=== PATIENT | female | born 2005 | race Two or more races ===

== ENCOUNTER 2025-01-23 17:47 | Emergency (ER) | payer BC, SELFPAY ==
--- NOTE | ~2025-01-23 | US_ITS ---
CLINICAL HISTORY: +HCG, cramping, spotting Ultrasound OB first trimester Comparison: None available Findings: Single live intrauterine . CRL: 0.5 cm. EGA: 6 weeks and 3 days. MARLENE: 09/15/25. Previously established gestational age: N/A. Normal yolk sac. FHR: 127 bpm. No subchorionic bleed. Normal uterus and ovaries. Right corpus luteum. Trace pelvic free fluid, likely physiologic. Impression: Single live intrauterine estimated at 6 weeks and 3 days gestational age by today's ultrasound criteria. This document has been electronically signed by: Ashanti Morse MD on 01/23/2025 20:27:48
[2025-01-23 17:57] VITALS: BP 135/97; PULSE 79; RESP 16; TEMP 36.3; O2SAT 99; BMI 34.1
--- NOTE | 2025-01-23 17:59 | ED.PREGNANCY ---
HPI - General Chief complaint: Vaginal Bleeding Stated complaint: vaginal bleeding Time Seen by Provider: 01/23/25 20:10 Related Data Allergies Allergy/AdvReac Type Severity Reaction Status Date / Time No Known Allergies Allergy Verified 01/23/25 17:59 [facility], [facility] Social History Social History Advance Directives: No Advance Directives Information Provided: No Physical Exam Vital Signs: Vital Signs: Last Vital Signs Temp 97.3 F 01/23/25 17:57 Pulse 79 01/23/25 17:57 Resp 16 01/23/25 17:57 BP 135/97 H 01/23/25 17:57 Pulse Ox 99 01/23/25 17:57 O2 Del Method Room Air 01/23/25 17:57 BMI result Body Mass Index 34.1 Course Course Course Narrative: This is an RME: Additional HPI, ROS, PE not included below will be deferred to primary provider. RME assessment and note performed by: Lata Higuera PA-C This is a [id number] who presents to the ER with a complaint of vaginal spotting which started last week. Reporting some lower abdominal cramping. Also reporting nausea and vomiting. This is her first . LMP December 06. Plan: Labs, UA, US further ER eval needed Reevaluation(s) Reevaluation #1: I went to assess the patient, she had left her exam room without completing treatment Medical Decision Making Medical Decision Making MDM Narrative: Labs: No leukocytosis, not anemic, no electrolyte abnormality, quant [id number] Transvaginal ultrasound:Normal yolk sac. FHR: 127 bpm. No subchorionic bleed. Normal uterus and ovaries. Right corpus luteum. Trace pelvic free fluid, likely physiologic. Impression: Single live intrauterine estimated at 6 weeks and 3 days gestational age by today's ultrasound criteria. Lab Data 01/23/25 18:15 01/23/25 18:15 Labs: Lab Results 01/23/25 Range/Units 18:15 WBC 9.1 (4.8-10.8) X10*3/uL RBC 4.11 L (4.20-5.50) X10*6/uL Hgb 11.5 L (12.0-16.0) g/dl Hct 33.7 L (37.0-47.0) % MCV 82.0 (80.0-98.0) fL MCH 28.0 (27.0-33.0) pg MCHC 34.1 (31.0-35.0) g/dl RDW 14.5 (11.0-16.0) % Plt Count 235 (160-400) X10*3/uL MPV 10.5 (9.4-12.3) fL Immature Gran % (Auto) 0.3 (0.0-0.4) % Neut % (Auto) 61.3 (45-73) % Lymph % (Auto) 29.8 (20-40) % [place] % (Auto) 7.7 (2-11) % Eos % (Auto) 0.3 (0-4) % Baso % (Auto) 0.6 (0-2) % Lymph # (Auto) 2.7 (1.2-4.9) X10*3/uL [place] # (Auto) 0.7 (0.1-1.2) X10*3/uL Eos # (Auto) 0.0 (0.0-0.4) X10*3/uL Baso # (Auto) 0.1 (0.0-0.2) X10*3/uL Abs Immat Gran (auto) 0.03 (0.00-0.03) X10*3/uL Absolute Neuts (auto) 5.6 (2.0-8.3) x10*3/uL Absolute Nucleated RBC 0.000 (0.0-0.012) X10*3/uL Nucleated RBC % (auto) 0.0 (0.0-0.2) /100WBC Sodium 138 (135-145) mmol/L Potassium 3.7 (3.3-5.1) mmol/L Chloride 107 (96-108) mmol/L Carbon Dioxide 23 (22-29) mmol/L Anion Gap 12 (12-20) BUN 6 L (9-16) mg/dL Creatinine 0.58 (0.5-1.4) mg/dL Estim Creat Clear Calc 154.7 Estimated GFR > 60 Random Glucose 90 (60-115) mg/dL Calcium 9.2 (8.4-10.2) mg/dL Total Bilirubin 1.0 (0.0-1.0) mg/dL Direct Bilirubin 0.4 (0.0-0.5) mg/dL AST 23 (5-31) U/L ALT 30 (0-31) U/L Alkaline Phosphatase 66 (39-117) U/L Total Protein 7.4 (6.5-8.0) g/dL Albumin 4.8 (3.5-5.0) g/dL Beta HCG, Quant 25045 mIU/mL Discharge Plan Discharge Clinical Impression: Vaginal bleeding Patient Disposition: Left W/O Completing Treatment
[2025-01-23 18:20] LABS: MANUAL DIFF FLAG NO
[2025-01-23 18:22] LABS: Hematocrit 33.7 % (37.0-47.0); Hemoglobin 11.5 g/dl (12.0-16.0); Imm Gran Abs Auto 0.03 X10*3/uL (0.00-0.03); Imm Gran Pct Auto 0.3 % (0.0-0.4); Lymphocytes Absolute Auto 2.7 X10*3/uL (1.2-4.9); Mean Corpuscular HGB Conc 34.1 g/dl (31.0-35.0); Mean Corpuscular Hemoglobin 28.0 pg (27.0-33.0); Mean Corpuscular Volume 82.0 fL (80.0-98.0); NRBC Abs Auto 0.000 X10*3/uL (0.0-0.012); NRBC Pct Auto 0.0 /100WBC (0.0-0.2); Platelet Count 235 X10*3/uL (160-400); Red Blood Count 4.11 X10*6/uL (4.20-5.50); White Blood Count 9.1 X10*3/uL (4.8-10.8)
[2025-01-23 18:44] LABS: Alanine Aminotransferase 30 U/L (0-31); Albumin Level 4.8 g/dL (3.5-5.0); Alkaline Phosphatase 66 U/L (39-117); Anion Gap 12 (12-20); Aspartate Amino Transferase 23 U/L (5-31); Blood Urea Nitrogen 6 mg/dL (9-16); Calcium 9.2 mg/dL (8.4-10.2); Carbon Dioxide 23 mmol/L (22-29); Chloride 107 mmol/L (96-108); Creatinine Clr Calc Pharmacy 154.7; Estimated Glomerular Filt Rate > 60; Potassium 3.7 mmol/L (3.3-5.1); Sodium 138 mmol/L (135-145); Total Protein 7.4 g/dL (6.5-8.0)
--- NOTE | 2025-01-23 21:39 | PC.NURSE ---
Pt not in room or testing at time of contact. T/W called Pt cell phone, Pt states I left because I had to get to the store before it closed, I wont be going back if it's going to take more then 1 hour . Pt LWCT.
== END 2025-01-23 21:52 | disposition left against medical advice (07) ==
PROVIDERS: Physician Assistant Medical; Emergency Provider Emergency Medicine Emergency Medical Services; PCP Physician Assistant Medical
DX: O20.9 Hemorrhage in early pregnancy, unspecified (principal); Z3A.01 Less than 8 weeks gestation of pregnancy; O26.891 Other specified pregnancy related conditions, first trimester; R10.2 Pelvic and perineal pain; Z53.21 Procedure and treatment not carried out due to patient leaving prior to being seen by health care provider
CPT/HCPCS: 36415; 76801; 80048; 80076; 84702; 85025; 99281; 99284

== ENCOUNTER → 2025-01-23 18:02 | Outpatient (BNV) | payer BC, SELFPAY | PROVIDERS: Emergency Provider Emergency Medicine Emergency Medical Services; PCP Physician Assistant Medical; Visit Provider Radiology Diagnostic Radiology | DX: O26.851 Spotting complicating pregnancy, first trimester (principal); Z3A.14 14 weeks gestation of pregnancy | CPT/HCPCS: 76801 ==

== ENCOUNTER 2025-03-05 17:08 | Emergency (ER) | payer BC, SELFPAY ==
--- NOTE | ~2025-03-05 | US_ITS ---
CLINICAL HISTORY: pelvic pain --- Additional Notes or Special Instructions: 12 weeks US OB 1st trimester transabdominal Comparison: None provided Findings: Single intrauterine is favored by imaging with partial obscuration of the borders and margins of the apparent gestational sac. CRL: 67.1 mm. EGA: 13 weeks, 0 days. Plus or minus one week MARLENE: September 10, 2025. Right ovary measures 2.2 x 2.1 x 1.8 cm. Left ovary measures 2.1 x 1.851.4 cm. No definite yolk sac is confirmed or defined by ultrasound at this time. Cardiac activity: 158 bpm. No definite subchorionic bleed, by submitted of the imaged edges. No free fluid in the imaged pelvis by submitted transabdominal imaging. No definite heterotopic by transabdominal ultrasound at this time. IMPRESSION: Single intrauterine with estimated gestational age 13 weeks and 0 days +/-1 week. No definite ultrasound findings of ovarian torsion by transabdominal imaging. This document has been electronically signed by: Steven Braun MD on 03/05/2025 19:29:50
[2025-03-05 17:21] VITALS: BP 119/71; PULSE 96; RESP 18; TEMP 36.4; O2SAT 99; BMI 31.5
--- NOTE | 2025-03-05 17:25 | ED.GENADULT ---
HPI - General Adult General Chief complaint: OB Stated complaint: 12 wks , has pain Time Seen by Provider: 03/05/25 19:58 Source: patient, RN notes reviewed and old records reviewed Mode of arrival: ambulatory Limitations: no limitations History of Present Illness ED Provider: Shelly KEE narrative: 19-year-old female presents for evaluation of lower abdominal cramping. She reports that she is , about 12 weeks pain She is . She reports that she saw her OBGYN 2 days ago and actually had an ultrasound. She reports that she was told everything was good Her current pain started a couple of hours prior to arrival. She denies any vaginal bleeding Related Data Previous Rx's ?Medication ?Instructions ?Recorded cefuroxime axetil 250 mg tablet 250 mg PO Q12H #10 tabs 03/05/25 Allergies Allergy/AdvReac Type Severity Reaction Status Date / Time No Known Allergies Allergy Verified 03/05/25 17:24 Review of Systems Constitutional: Constitutional: Denies body ache(s), Denies chills and Denies fever(s) Eyes: Eyes: Denies blurry vision Cardiovascular: Cardiovascular: Denies chest pain and Denies dyspnea on exertion Respiratory: Respiratory: Denies cough and Denies dyspnea on exertion Gastrointestinal: Gastrointestinal: Reports abdominal pain, Denies nausea and Denies vomiting Genitourinary: Genitourinary: Denies difficulty voiding, Denies genital pruritis, Denies dysuria and Denies vaginal discharge Comments: + urinary frequency Musculoskeletal: Musculoskeletal: Denies back pain PMFSH Social History Social History Advance Directives: No Advance Directives Information Provided: No Physical Exam ED Vital Signs: Vital Signs - 24 hr 03/05/25 17:21 03/05/25 20:10 Temperature 97.6 F 97.6 F Pulse Rate 96 96 Respiratory Rate 18 18 Blood Pressure 119/71 119/71 Pulse Oximetry 99 99 Oxygen Delivery Method Room Air Room Air BMI result Body Mass Index 31.5 Const General: healthy appearing, comfortable, no acute distress, alert and awake Nutritional Appearance: well nourished Orientation/consciousness: patient oriented x3 HENMT Head: Yes normocephalic and Yes atraumatic Eyes Eyelids: Yes eyelids normal Conjunctivae: conjunctivae normal Sclerae: sclerae normal Corneas: corneas normal Pupils: Equal, round and reactive pupils present EOM: EOMs intact bilaterally Neck Neck: Yes full ROM Resp Effort & Inspection: normal respiratory effort, able to speak in complete sentences and not labored Cardio Rate: regular rate Rhythm: regular rhythm GI Inspection: No distended Palpation (GI): Soft to palpation, not firm, nontender, no guarding and not rigid Skin General skin exam: elasticity normal Neuro General: patient oriented x3 Cranial nerves: Yes Equal, round and reactive pupils present and Yes Bilaterally intact EOM present Cognition (Neuro): normal cognition Extrem Other: Moving all extremities well without any obvious deformities Course Course Course Narrative: RME, this is a rapid medical exam performed by Aldo Bravo please refer to primary provider for complete H&P- 19-year-old female who is approximately 12 weeks presents for evaluation of pelvic pain and cramping that started today around noon. She reports having had an ultrasound 2 days ago and was told everything was good. Denies any vaginal bleeding. Plan for labs and repeat ultrasound Medical Decision Making Medical Decision Making [facility] Narrative: 19-year-old female presents for evaluation of lower abdominal/pelvic pain. She is about 12 weeks by her report. On exam she has no right lower quadrant tenderness, she does have some suprapubic tenderness. No CVA tenderness. Her labs show no leukocytosis but she does have a mild, stable normocytic anemia. There is a left shift with 83.8% neutrophils. Chemistries without any significant [place] [address] which is consistent with her known of about 12 weeks. An ultrasound of the fetus was performed that shows no significant abnormalities. The patient's urinalysis shows hematuria and 4+ bacteria with greater than 50 leukocytes. This is consistent with a urinary tract infection and likely the cause of her pain today. There was no evidence of systemic infection. Given that she has no right lower quadrant tenderness or leukocytosis, acute appendicitis is favored to be less likely. We will treat with cefuroxime Differential Diagnosis Differential Diagnoses: The differential diagnosis associated with the presentation includes UTI in Ectopic Threatened Spontaneous Constipation Acute appendicitis Lab Data [facility] Lab Attestation statement: I reviewed the patient's lab results. As above 03/05/25 18:29 03/05/25 18:29 Labs: Lab Results 03/05/25 Range/Units 18:29 WBC 10.8 (4.8-10.8) X10*3/uL RBC 4.02 L (4.20-5.50) X10*6/uL Hgb 11.1 L (12.0-16.0) g/dl Hct 33.2 L (37.0-47.0) % MCV 82.6 (80.0-98.0) fL MCH 27.6 (27.0-33.0) pg MCHC 33.4 (31.0-35.0) g/dl RDW 14.3 (11.0-16.0) % Plt Count 253 (160-400) X10*3/uL MPV 10.6 (9.4-12.3) fL Immature Gran % (Auto) 1.6 H (0.0-0.4) % Neut % (Auto) 83.8 H (45-73) % Lymph % (Auto) 10.4 L (20-40) % [place] % (Auto) 3.6 (2-11) % Eos % (Auto) 0.2 (0-4) % Baso % (Auto) 0.4 (0-2) % Lymph # (Auto) 1.1 L (1.2-4.9) X10*3/uL [place] # (Auto) 0.4 (0.1-1.2) X10*3/uL Eos # (Auto) 0.0 (0.0-0.4) X10*3/uL Baso # (Auto) 0.0 (0.0-0.2) X10*3/uL Abs Immat Gran (auto) 0.17 H (0.00-0.03) X10*3/uL Absolute Neuts (auto) 9.1 H (2.0-8.3) x10*3/uL Absolute Nucleated RBC 0.000 (0.0-0.012) X10*3/uL Nucleated RBC % (auto) 0.0 (0.0-0.2) /100WBC Sodium 139 (135-145) mmol/L Potassium 4.3 (3.3-5.1) mmol/L Chloride 108 (96-108) mmol/L Carbon Dioxide 21 L (22-29) mmol/L Anion Gap 14 (12-20) BUN 5 L (9-16) mg/dL Creatinine 0.51 (0.5-1.4) mg/dL Estim Creat Clear Calc 168.9 Estimated GFR > 60 Random Glucose 92 (60-115) mg/dL Calcium 9.4 (8.4-10.2) mg/dL Total Bilirubin 0.5 (0.0-1.0) mg/dL AST 19 (5-31) U/L ALT 31 (0-31) U/L Alkaline Phosphatase 50 (39-117) U/L Total Protein 7.2 (6.5-8.0) g/dL Albumin 4.4 (3.5-5.0) g/dL Lipase 9 (8-78) U/L Beta HCG, Quant 73755 mIU/mL Urine Color Yellow Urine Appearance Cloudy Urine pH 7.0 (5.0-9.0) Ur Specific [place] 1.020 (1.005-1.025) Urine Protein 30 (1+) H (Neg-Trace) mg/dL Urine Glucose (UA) Negative (Negative) mg/dL Urine Ketones >=160 (Negative) mg/dL Urine Blood Moderate (2+) H (Negative) Urine Nitrite Negative (Negative) Ur Leukocyte Esterase Large (3+) H (Negative) Urine RBC >20 H (0-2) /HPF Urine WBC >50 H (0-5) /HPF Ur Squamous Epith Cells 11-20 (0-2) /HPF Urine Bacteria 4+ (None Seen) Hyaline Casts 0-2 (0-2) /LPF Blood Type O Positive Radiology Impression Discussion of test interpretation with radiology: I have reviewed the radiologist's reading. Radiologist Impression: Findings: Single intrauterine is favored by imaging with partial obscuration of the borders and margins of the apparent gestational sac. CRL: 67.1 mm. EGA: 13 weeks, 0 days. Plus or minus one week MARLENE: September 10, 2025. Right ovary measures 2.2 x 2.1 x 1.8 cm. Left ovary measures 2.1 x 1.851.4 cm. No definite yolk sac is confirmed or defined by ultrasound at this time. Cardiac activity: 158 bpm. No definite subchorionic bleed, by submitted of the imaged edges. No free fluid in the imaged pelvis by submitted transabdominal imaging. No definite heterotopic by transabdominal ultrasound at this time. IMPRESSION: Single intrauterine with estimated gestational age 13 weeks and 0 days +/-1 week. No definite ultrasound findings of ovarian torsion by transabdominal imaging. This document has been electronically signed by: Steven Braun MD on 03/05/2025 19:29:50 Discharge Plan Discharge Clinical Impression: UTI (urinary tract infection) during Patient Disposition: Home, Self-Care Instructions: Urinary Tract Infection in (ED) Additional Instructions: Your workup in the ER today was reassuring. The which does show that you have a urinary tract infection which is likely the cause of your discomfort Take the cefuroxime twice daily for 5 days Drink lots of fluids I do recommend that you call your OBGYN to let them know you are taking an antibiotic called cefuroxime for your UTI Prescriptions: New cefuroxime axetil 250 mg tablet 250 mg PO Q12H Qty: 10 0RF Interventions: ED Discharge Assessment Last Done: 03/05/25 20:10 Discharge Date/Time: 03/05/25 20:10 Print Language: Latvian
[2025-03-05 18:40] LABS: MANUAL DIFF FLAG NO
[2025-03-05 18:47] LABS: Appearance Urine Cloudy; Glucose Urine UA Negative (Negative); PH 7.0 (5.0-9.0); Specific Gravity - Urine 1.020 (1.005-1.025); UMIC TRIGGER UACC YES
[2025-03-05 18:49] LABS: UACC Culture Trigger YES
[2025-03-05 18:52] LABS: Hematocrit 33.2 % (37.0-47.0); Hemoglobin 11.1 g/dl (12.0-16.0); Imm Gran Abs Auto 0.17 X10*3/uL (0.00-0.03); Imm Gran Pct Auto 1.6 % (0.0-0.4); Lymphocytes Absolute Auto 1.1 X10*3/uL (1.2-4.9); Mean Corpuscular HGB Conc 33.4 g/dl (31.0-35.0); Mean Corpuscular Hemoglobin 27.6 pg (27.0-33.0); Mean Corpuscular Volume 82.6 fL (80.0-98.0); NRBC Abs Auto 0.000 X10*3/uL (0.0-0.012); NRBC Pct Auto 0.0 /100WBC (0.0-0.2); Platelet Count 253 X10*3/uL (160-400); Red Blood Count 4.02 X10*6/uL (4.20-5.50); White Blood Count 10.8 X10*3/uL (4.8-10.8)
[2025-03-05 19:03] LABS: Alanine Aminotransferase 31 U/L (0-31); Albumin Level 4.4 g/dL (3.5-5.0); Alkaline Phosphatase 50 U/L (39-117); Anion Gap 14 (12-20); Aspartate Amino Transferase 19 U/L (5-31); Blood Urea Nitrogen 5 mg/dL (9-16); Calcium 9.4 mg/dL (8.4-10.2); Carbon Dioxide 21 mmol/L (22-29); Chloride 108 mmol/L (96-108); Creatinine Clr Calc Pharmacy 168.9; Estimated Glomerular Filt Rate > 60; Lipase 9 U/L (8-78); Potassium 4.3 mmol/L (3.3-5.1); Sodium 139 mmol/L (135-145); Total Protein 7.2 g/dL (6.5-8.0)
[2025-03-05 20:10] VITALS: BP 119/71; PULSE 96; RESP 18; TEMP 36.4; O2SAT 99
== END 2025-03-05 20:10 | disposition home or self-care (01) ==
PROVIDERS: Physician Assistant; Emergency Provider Emergency Medicine Emergency Medical Services; PCP Physician Assistant Medical
DX: O23.31 Infections of other parts of urinary tract in pregnancy, first trimester (principal); N39.0 Urinary tract infection, site not specified
CPT/HCPCS: 36415; 76801; 80053; 81001; 83690; 84702; 85025; 86900; 86901; 87086; 87088; 87186; 99282; 99284

== ENCOUNTER → 2025-03-05 17:25 | Outpatient (BNV) | payer BC, SELFPAY | PROVIDERS: PCP Physician Assistant Medical; Visit Provider Radiology Neuroradiology | DX: Z3A.13 13 weeks gestation of pregnancy (principal) | CPT/HCPCS: 76801 ==